=== PATIENT | female | born 1960 | race Caucasian/White ===

== ENCOUNTER 2023-08-09 15:20 | Emergency (ER) | payer BC ==
--- NOTE | 2023-08-09 16:51 | RAD REPORT ---
EXAM DESCRIPTION: CT - Stone Protocol - 08/09/2023 4:01 pm CLINICAL HISTORY: right flank pain COMPARISON: No comparisons TECHNIQUE: Thin cut axial CT imaging of the abdomen and pelvis was performed without IV contrast. Mu ltiplanar reformats were generated and reviewed. All CT scans are performed using dose optimization technique as appropriate and may include automated exposure control or mA/KV adjustment according to patient size. FINDINGS: No suspicious findings in the lung bases. The liver, spleen, adrenal glands, and pancreas show no suspicious findings. Punctate calcifications in the suggestive of small granulomas, benign in appearance. Gallbladder and biliary tree are also wi thout suspicious finding. Symmetric renal contour, without suspicious parenchymal findings within limits of noncontrast techniq ue. No evidence of hydroureteronephrosis. Bilateral small nonobstructing calculi, largest measuring 9 millimeter at the right interpolar region and 7 millimeter at the left superior pole. No dilated bowel loops or bowel wall thickening. No free air, free fluid or inflammatory stranding. N o hernia, mass or bulky lymphadenopathy. The urinary bladder is decompressed limiting evaluation, wit h a calcific focus seen in the vicinity of the bladder posteriorly right of midline, measuring 8-9 mi llimeter, may represent a phleboliths or a small bladder calculus. . No suspicious bony findings. IMPRESSION: Focus of calcification right of the midline posteriorly in the vicinity of the bladder m easuring 8-9 millimeter, may represent a phlebolith or a small bladder calculus. Bilateral nonobstructing renal calculi, up to 9 millimeter on the right and 7 millimeter on the left. No hydroureteronephrosis.
[2023-08-09 16:53] LABS: Absolute Lymphocytes (CBC) 2.5 K/uL (0.7-4.9); Hematocrit 41.7 % (36.0-45.0); Lymphocytes % 41.1 % (15.3-44.8); MCV 90.9 fL (80-100); Platelets 192 thou/uL (152-406); RBC Red Blood Cell Count 4.58 M/uL (3.86-4.86)
[2023-08-09 17:11] LABS: Specific Gravity 1.025 (1.005-1.030); Urine Bacteria None Seen /HPF (<20); Urine Bilirubin NEGATIVE (Negative); Urine Blood 1+ (Negative); Urine Clarity Turbid (Clear); Urine Color Yellow (Yellow); Urine Glucose NEGATIVE (Negative); Urine Mucus Slight /HPF (None Seen); Urine Protein TRACE (Negative); Urine Urobilinogen Normal (Normal); Urine WBC Clump Rare /HPF (None Seen)
[2023-08-09 17:18] LABS: Potassium 3.6 mEq/L (3.5-5.1)
--- NOTE | 2023-08-09 17:19 | EDPHYS ---
Physician Documentation [facility] Name: Daphney Hatch Age: 63 yrs Sex: Female : 1960 Arrival Date: 08/09/2023 Time: 15:20 Bed 9 Private MD: ED Physician Stephen Winter HPI: 08/09 15:41 This 63 yrs old Female presents to ER via Unassigned with complaints of Possible Kidney rn Stone, Urinary Frequency. 15:41 The patient complains of pain in the right mid back. The pain radiates to the abdomen. rn 15:42 Onset: The symptoms/episode began/occurred 2 week(s) ago. Modifying factors: The rn symptoms are alleviated by nothing. the symptoms are aggravated by nothing. Associated signs and symptoms: Pertinent positives: urinary frequency, Pertinent negatives: fever, hematuria. Severity of pain: At its worst the pain was moderate in the emergency department the pain has improved. The patient has experienced similar episodes in the past. Patient reports history of multiple kidney stones in the past, this feels similar. Reports usually takes weeks to months to pass kidney stones but has never required intervention. Reports 10 days ago seen by a provider and prescribed antibiotics for possible UTI. Reports pain peaked yesterday and is doing much better today but still feels discomfort on the right side.. Historical: - Allergies: 15:49 iodine; jl7 - Home Meds: 15:49 topiramate oral [Active]; Simvastatin Oral [Active]; venlafaxine oral [Active]; jl7 - PMHx: 15:49 high cholesterol; Depressive disorder; jl7 - PSHx: 15:49 Tonsillectomy; jl7 - Immunization history:: Adult Immunizations unknown. - Social history:: Smoking status: Patient denies any tobacco usage or history of. - Family history:: not pertinent. - Hospitalizations: : No recent hospitalization is reported. ROS: 15:42 Constitutional: Negative for fever, chills, and weight loss, Cardiovascular: Negative rn for chest pain, palpitations, and edema, Respiratory: Negative for shortness of breath, cough, wheezing, and pleuritic chest pain, Abdomen/GI: Positive for right flank pain : Positive for increased urinary frequency MS/Extremity: Negative for injury and deformity, Exam: 15:42 Constitutional: This is a well developed, well nourished patient who is awake, alert, rn and in no acute distress. Cardiovascular: Regular rate and rhythm. No pulse deficits. Respiratory: No increased work of breathing, no retractions or nasal flaring. Abdomen/GI: Soft, non-tender Back: No spinal tenderness. No costovertebral tenderness. Full range of motion. Vital Signs: 15:47 BP 135 / 79; Pulse 65; Resp 17; Temp 98.2; Pulse Ox 99% ; Weight 88.45 kg; Height 5 ft. jl7 5 in. ; Pain 0/10; 17:44 BP 127 / 74; Pulse 67; Resp 17; Pulse Ox 98% ; cp4 15:47 Body Mass Index 32.45 (88.45 kg, 165.1 cm) jl7 15:47 Pain Scale: Adult jl7 MDM: 15:28 Patient medically screened. rn 17:16 Differential diagnosis: nephrolithiasis, UTI. Data reviewed: vital signs, nurses notes, administration intern test result(s), radiologic studies, CT scan, and as a result, I will discharge patient. Independent interpretation of the following test(s) in the Emergency Department CT Scan: My interpretation is CT stone protocol shows calculus in the bladder per my interpretation. Counseling: I had a detailed discussion with the patient and/or guardian regarding the historical points, exam findings, and any diagnostic results supporting the discharge/admit diagnosis, lab results, radiology results, the need for outpatient follow up, to return to the emergency department if symptoms worsen or persist or if there are any questions or concerns that arise at home. 17:17 Special discussion: I discussed with the patient/guardian in detail that at this point rn there is no indication for admission to the hospital. It is understood, however, that if the symptoms persist or worsen the patient needs to return immediately for re-evaluation. Based on the history and exam findings, there is no indication for further emergent testing or inpatient evaluation. I discussed with the patient/guardian the need to see the urologist for further evaluation of the symptoms. ED course: Stone is in the bladder, consistent with the fact that her pain markedly decreased since yesterday. Still on antibiotics and urine does not appear to show UTI, instead consistent with dirty catch at this time. Normal white blood cell count. Afebrile. I have personally reviewed all of the results, including but not limited to blood tests and imaging deemed necessary to safely discharge this patient at this time. All results given to and printed out for patient. I personally went over all the results with the patient and answered all questions. Patient will follow-up with PCP and or specialist as discussed. Return precautions given and understood.. 08/09 15:33 Order name: CBC with Diff; Complete Time: 16:54 rn 08/09 15:33 Order name: Basic Metabolic Panel; Complete Time: 17:19 rn 08/09 15:33 Order name: Urinalysis w/ reflexes; Complete Time: 17:12 rn 08/09 17:19 Order name: Urine Culture EDAL 08/09 15:33 Order name: CT Stone Protocol; Complete Time: 16:54 rn Administered Medications: 17:37 Drug: traMADol PO 50 mg PO once Route: PO; cp4 Disposition Summary: 08/09/23 17:19 Discharge Ordered Notes: Location: Home rn Problem: new rn Symptoms: have improved rn Condition: Stable rn Diagnosis - Urinary calculus, unspecified - In bladder rn Followup: rn - With: Private Physician - When: As needed - Reason: Recheck today's complaints, Re-evaluation by your physician Discharge Instructions: - Discharge Summary Sheet rn - Kidney Stones rn Forms: - Medication Reconciliation Form rn - Thank You Letter rn - Antibiotic workers compensation attorney - Prescription Opioid Use rn - Patient Portal Instructions rn - Leadership Thank You Letter rn Prescriptions: - Tramadol 50 mg Oral Tablet - take 1 tablet ORAL route every 8 hours as needed; 12 tablet; Refills: 0, rn Product Selection Permitted Signatures: Dispatcher [employer] [facility] Stephen Winter MD MD rn Leal, Jahala, RN RN Brissa Cheema cp4 Corrections: (The following items were deleted from the chart) 15:52 15:49 Allergies: No Known Allergies; cony jl7
--- NOTE | 2023-08-09 17:19 | ER ---
Nurse's Notes [facility] Name: Daphney Hatch Age: 63 yrs Sex: Female : 1960 Arrival Date: 08/09/2023 Time: 15:20 Bed 9 Private MD: Diagnosis: Urinary calculus, unspecified-In bladder Presentation: 08/09 15:47 Chief complaint: Patient states: Right flank pain, hx of kidney stones. Coronavirus jl7 screen: At this time, the client does not indicate any symptoms associated with coronavirus-19. Ebola Screen: No symptoms or risks identified at this time. Initial Sepsis Screen: Does the patient meet any 2 criteria? No. Patient's initial sepsis screen is negative. Does the patient have a suspected source of infection? No. Patient's initial sepsis screen is negative. Risk Assessment: Do you want to hurt yourself or someone else? Patient reports no desire to harm self or others. Onset of symptoms was August 09, 2023. 15:47 Method Of Arrival: Ambulatory [facility] 15:47 Acuity: MARAH 3 jl7 Triage Assessment: 15:49 General: Appears in no apparent distress. uncomfortable, Behavior is calm, cooperative, jl7 appropriate for age. Pain: Complains of pain in right mid back Pain currently is 0 out of 10 on a pain scale. at worst was 10 out of 10 on a pain scale. Neuro: Level of Consciousness is awake, alert, obeys commands, Oriented to person, place, time, situation. Cardiovascular: Patient's skin is warm and dry. Respiratory: Airway is patent Respiratory effort is even, unlabored, Respiratory pattern is regular, symmetrical. GI: Abdomen is non-distended. : Reports pain in right flank(s). Derm: Skin is pink, warm \T\ dry. Historical: - Allergies: 15:49 iodine; jl7 - Home Meds: 15:49 topiramate oral [Active]; Simvastatin Oral [Active]; venlafaxine oral [Active]; jl7 - PMHx: 15:49 high cholesterol; Depressive disorder; jl7 - PSHx: 15:49 Tonsillectomy; jl7 - Immunization history:: Adult Immunizations unknown. - Social history:: Smoking status: Patient denies any tobacco usage or history of. - Family history:: not pertinent. - Hospitalizations: : No recent hospitalization is reported. Screenin:55 [facility] ED Fall Risk Assessment (Adult) History of falling in the last 3 months, cp4 including since admission No falls in past 3 months (0 pts). [facility] ED Fall Risk Assessment (Adult) History of falling in the last 3 months, including since admission No falls in past 3 months (0 pts) Confusion or Disorientation No (0 pts) Intoxicated or Sedated No (0 pts) Impaired Gait No (0 pts) Mobility Assist Device Used No (0 pt) Altered Elimination No (0 pt) Score/Fall Risk Level 0 - 2 = Low Risk Oriented to surroundings, Maintained a safe environment, Educated pt \T\ family on fall prevention, incl call for assistance when getting out of bed, Hourly rounding (assess needs \T\ fall precautionary measures) done. Abuse screen: Denies threats or abuse. Nutritional screening: No deficits noted. Tuberculosis screening: No symptoms or risk factors identified. Assessment: 15:55 General: Appears in no apparent distress. Behavior is calm, cooperative, appropriate cp4 for age. 15:55 Pain: Complains of pain in right flank Pain currently is 8 out of 10 on a pain scale. cp4 15:55 GI: Bowel sounds present X 4 quads. Abd is soft and non tender X 4 quads. cp4 Vital Signs: 15:47 BP 135 / 79; Pulse 65; Resp 17; Temp 98.2; Pulse Ox 99% ; Weight 88.45 kg; Height 5 ft. jl7 5 in. ; Pain 0/10; 17:44 BP 127 / 74; Pulse 67; Resp 17; Pulse Ox 98% ; cp4 15:47 Body Mass Index 32.45 (88.45 kg, 165.1 cm) jl7 15:47 Pain Scale: Adult jl7 ED Course: 15:27 Patient arrived in ED. mg5 15:28 Stephen Winter MD is Attending Physician. rn 15:47 Brissa Clemente is Primary Nurse. cp4 15:49 Triage completed. jl7 15:49 Arm band placed on right wrist. jl7 15:55 Bed in low position. Call light in reach. Side rails up X 1. Provided Education on: cp4 kidney stones. 15:55 No provider procedures requiring assistance completed. intact, bleeding controlled, No cp4 redness/swelling at site. Pressure dressing applied. 16:03 CT Stone Protocol In Process Unspecified. EDMS 16:47 Inserted saline lock: 22 gauge in left wrist, using aseptic technique. Blood collected. ds4 16:47 Basic Metabolic Panel Sent. ds4 16:47 CBC with Diff Sent. ds4 Administered Medications: 17:37 Drug: traMADol PO 50 mg PO once Route: PO; cp4 Medication: 15:55 VIS not applicable for this client. cp4 Outcome: 15:55 Discharged to home ambulatory, cp4 15:55 Condition: stable 15:55 Discharge instructions given to patient, Instructed on discharge instructions, follow up and referral plans. medication usage, Demonstrated understanding of instructions, follow-up care, medications, Prescriptions given X 1, 17:19 Discharge ordered by . rn 17:44 Patient left the ED. cp4 Signatures: Dispatcher [employer] EDMS Stephen Winter MD MD rn Swanson, Donovan ds4 Tip Suarez RN RN jl7 Gardner, [place] 5 Brissa Clemente cp4 Corrections: (The following items were deleted from the chart) 15:52 15:49 Allergies: No Known Allergies; cony donnelly
[2023-08-09] MEDS ORDERED: TRAMADOL HCL 50 MG TAB ONE (17:33)
[2023-08-09 18:02] VITALS: TEMP 98.2
[2023-08-09 18:08] VITALS: BP 127/74; O2SAT 98
== END 2023-08-09 17:44 | disposition home or self-care (01) ==
LOC: ER 15:20
DX: N20.9 Urinary calculus, unspecified (principal); Z87.442 Personal history of urinary calculi; Z91.048 Other nonmedicinal substance allergy status
CPT/HCPCS: 36415; 74176; 76377; 80048; 81001; 85025; 87086; 87088; 99284